=== PATIENT | male | born 2000 | race African-American/Black ===

== ENCOUNTER 2025-05-19 14:44 | Emergency (ER) | payer OTHER, SELFPAY ==
[2025-05-19 14:45] VITALS: BMI 27.3
[2025-05-19 15:03] VITALS: BP 154/89; PULSE 57; RESP 18; O2SAT 95
--- NOTE | 2025-05-19 15:15 | XR_ITS ---
Examination: PA chest single view TECHNIQUE: Upright PA chest single view Date and time: May 19, 2025 1530 hours INDICATIONS: Patient fell today with into the right chest, right rib pain FINDINGS: Normal heart size. No pneumothorax. Clavicles ribs appear intact IMPRESSION: No pneumothorax pulmonary contusion or hemothorax
--- NOTE | 2025-05-19 16:54 | EDNOTE_ITS ---
ED Chest Pain RME/HPI General Chief Complaint: Chest Pain Stated Complaint: INJURY TO RIGHT RIBS S/P 5 FT FALL Time Seen by Provider: 05/19/25 16:54 Source: patient Arrival date/time: 05/19/25 14:44 Mode of arrival: ambulatory Limitations: no limitations RME / HPI RME / HPI narrative: Patient fell approximately 5 feet on a slippery surface onto lat[place] ENRI[place] complaint: chest pain Onset (ago): hour(s) Duration: constant Onset: during rest and during exertion Pain location: right chest Severity: moderate Quality: aching Pain radiation: none Relieving factors: rest Exacerbating factors: exertion, inspiration and palpation Context: recent illness Associated symptoms: nausea Related Data Allergies Allergy/AdvReac Type Severity Reaction Status Date / Time No Known Allergies Allergy Verified 05/19/25 14:47 Review of Systems Constitutional Constitutional: Reports system reviewed and no additional complaints, except as documented Eyes Eyes: Reports system reviewed and no additional complaints, except as documented, Denies dry eyes, Denies exophthalmos and Reports floaters Cardiovascular Cardiovascular: Denies chest pain with activity and Denies claudication ED Exam General Limitations: Present no limitations General appearance: Present alert and in no apparent distress Head Head exam: Present atraumatic Eye Eye exam: Present normal appearance and EOMI ENT ENT exam: Present normal exam, normal oropharynx and mucous membranes moist Neck Neck exam: Present normal inspection, full ROM and trachea midline Chest Chest inspection: Present normal inspection, symmetric chest wall rise and tenderness (Tender to palpation is the right lower quadrant.) Respiratory Respiratory exam: Present normal lung sounds bilaterally Cardiovascular Cardiovascular exam: Present regular rate and normal rhythm Extremities Exam Extremities exam: Present normal inspection and full ROM Back Exam Back exam: Present normal inspection and full ROM Neurological Exam Neurological exam: Present alert and oriented X3 Psychiatric Psychiatric exam: Present normal affect and normal mood Skin Skin exam: Present warm, dry, intact and normal color Course Course Course Narrative: Patient will have a chest x-ray and 1 [place]. Quality Measures none Orders Category Date Time Status XR chest 1V portable Stat Exams 05/19/25 15:15 Completed DONE Vital Signs Vital signs: Vital Signs Pulse Rate 57 L 05/19/25 15:03 Respiratory Rate 18 05/19/25 15:03 Blood Pressure 154/89 H 05/19/25 15:03 Pulse Oximetry (%) 95 05/19/25 15:03 Oxygen Delivery Method Room Air 05/19/25 15:03 Pulse ox room air is 95% Chest Pain MDM Narrative MDM Narrative:: Patient will be discharged no apparent distress and he has to follow-up with primary care occupational med within 3 to 4 days of today's date Patient data External records reviewed:: Other (specify) (NA) Clinical information provided by:: patient and none (NA) Social determinants that could affect healthcare access:: none (NA) Patient has the following chronic illnesses:: NONE How is presenting disease/condition affected by chronic disease/condition?: no chronic disease (NA) Evaluation data The following diagnostics were reviewed and interpreted by me:: other (specify) (NA) Lab and/or radiology exams considered but not ordered:: NA Interpretation Summary: NA Medications / Prescriptions Medications or Prescriptions considered but not ordered:: NA Medication administrations:: NA Consultations Consultation(s) initiated? (list below): No Diagnosis Chest Pain Differential Diagnosis: stable angina, unstable angina pectoris, atypical chest pain, st elevation myocardial infarction and other (Chest wall contusion) Most likely diagnosis given after review of the tests above:: NA Admission Indicated Admission indicated?: not indicated Explain why admission is indicated or not indicated:: NA Admission Request Was there a request for admission?: No Disposition Plan Disposition Plan: Discharge Discharge Attestation Discharge Attestation: The patient and all family members were given an opportunity to ask questions and understood the discharge instructions. Discharge instructions specifically effects, indications for sooner follow up or return to the emergency department, and the expected course of current diagnosis. Patient condition: Stable Discharge Plan Plan Patient Disposition: HOME (Self Care) Discharge Disposition comment: Patient discharged in no apparent distress Patient condition on transfer: Stable Problem List Clinical Impression: Chest wall contusion Patient/Caregiver Discharge Instructions Discharge Activity: activity as tolerated Print Language: Slovenian Stand Alone Forms: Rosa Elena Award Info., Patient Portal Info Letter BETH/MELISA Supervising Physician BETH/MELISA Supervising Physician: DEONDRE
== END 2025-05-19 17:52 | disposition home or self-care (01) ==
PROVIDERS: Emergency Provider Family Medicine
DX: S20.219A Contusion of unspecified front wall of thorax, initial encounter (principal); W17.89XA Other fall from one level to another, initial encounter
CPT/HCPCS: 71045; 99283; A9270